=== PATIENT | male | born 1970 | race African-American/Black ===

== ENCOUNTER → 2020-10-10 | Outpatient (CLI) | payer OTHER ==
[~2020-10-10] MED LIST: CEFDINIR300 MG PO; FLEXERIL 10 MG10 MG PO; FLOMAX0.4 MG PO; FLONASE 0.05% N16 GM; IBU800 MG PO; NAPROSYN500 MG PO; PERCOCET 5/325 T1 EA PO; TORADOL 10 MG T10 MG PO; ZOFRAN ODT 4 MG4 MG SL
[2020-10-10 12:41] LABS: HEMOGLOBIN 14.6 gm/dl (14.0-17.5); RED BLOOD COUNT 5.24 M/UL (4.20-5.50); WHITE BLOOD COUNT 3.7 K/UL (4.5-11.0)
[2020-10-10 18:01] LABS: BUN/CREATININE RATIO 8 (0-10)
[2020-10-11 10:14] LABS: % FREE PSA 16.8 % (.); PROSTATE SPECIFIC AG, SERUM 2.2 ng/mL (0.0-4.0); PSA, FREE 0.37 ng/mL
== END ==
LOC: LAB 11:29
PROVIDERS: Nurse Practitioner Family
DX: J30.9 Allergic rhinitis, unspecified (principal); N40.1 Benign prostatic hyperplasia with lower urinary tract symptoms; R93.89 Abnormal findings on diagnostic imaging of other specified body structures; E78.5 Hyperlipidemia, unspecified; I10 Essential (primary) hypertension; G47.33 Obstructive sleep apnea (adult) (pediatric)
CPT/HCPCS: 36415; 80053; 80061; 84153; 84154; 84443; 85027

== ENCOUNTER → 2020-10-31 | Outpatient (CLI) | payer OTHER | LOC: RAD 10:40 | DX: M25.522 Pain in left elbow (principal); Z96.698 Presence of other orthopedic joint implants | CPT/HCPCS: 73080 ==

== ENCOUNTER 2021-10-13 12:28 | Emergency (ER) | payer OTHER ==
[2021-10-13 13:44] LABS: HEMOGLOBIN 14.2 gm/dl (14.0-17.5); RED BLOOD COUNT 5.36 M/UL (4.20-5.50); WHITE BLOOD COUNT 4.9 K/UL (4.5-11.0)
[2021-10-13 13:58] LABS: BUN/CREATININE RATIO 9 (0-10)
[2021-10-13] MEDS ORDERED: ENDOCET 5-3251 EACH PO (15:25)
== END 2021-10-13 15:31 | disposition home or self-care (01) ==
LOC: ER1 12:28
PROVIDERS: Physician Assistant
DX: N21.1 Calculus in urethra (principal); N20.0 Calculus of kidney
CPT/HCPCS: 80048; 80076; 81001; 85025; 96374; 96375; 99284; J1885; J2405

== ENCOUNTER → 2021-11-22 | Outpatient (CLI) | payer OTHER ==
[~2021-11-22] MED LIST changes: +ENDOCET 5-3251 EACH PO
== END ==
LOC: ECHO 09:00
DX: R76.9 Abnormal immunological finding in serum, unspecified (principal); I08.8 Other rheumatic multiple valve diseases
CPT/HCPCS: ECHO; 93306